=== PATIENT | female | born 1985 ===

== ENCOUNTER → 2024-07-10 | Outpatient (REF) | LOC: M EMP 16:04 | PROVIDERS: ATTEND Family Medicine | DX: Z11.52 Encounter for screening for COVID-19 (principal) ==

== ENCOUNTER → 2025-02-05 | Outpatient (REF) | LOC: M EMP 15:12 | PROVIDERS: ATTEND Family Medicine | DX: Z01.89 Encounter for other specified special examinations (principal) ==